=== PATIENT | female | born 1945 | race Caucasian/White ===

== ENCOUNTER → 2017-01-15 | Outpatient (CLI) | payer MEDICARE ==
--- NOTE | 2017-01-16 16:43 | XCELERA REPORT ---
[address] [address] Lower Extremity Arterial Evaluation Name: SHAUN DE LA CRUZ Age: 71 yrs Gender: Female : 1945 Patient Status: Outpatient Patient Location: Study Date: 01/15/2017 01:11 PM Procedure: A color flow and duplex scan of the lower extremity arteries was performed bilaterally with velocity and waveform anaylsis. Ankle brachial indicies performed. Reason For Study: ULCER Ordering Physician: SHARRON LUX Performed By: Cam Leigh Measurements and Calculations Right Left CASH APPLICATION REPRESENTATIVE PSV 101.5 94.3 cm/sec Prox PFA PSV -160.6 -96.2 cm/sec Dist SFA PSV -70.2 -64.0 cm/sec Dist Pop A PSV 60.2 68.4 cm/sec Dist SIA PSV 23.0 -35.4 cm/sec Dist AIR DRIER PSV 40.0 38.5 cm/sec Juan Francisco Pedis PSV 27.1 26.3 cm/sec Right Side Arterial Evaluation Normal velocity and biphasic waveforms noted from the Common Femoral artery to the Posterior Tibial artery . Monophasic with mild broadening in the Anterior Tibial artery 20-49 % stenosis noted . In the Ileo Femoral inflow. With sequential disease. Ankle Brachial index not done due to inability to withstand compression. Left Side Arterial Evaluation Normal velocity and biphasic waveforms noted in the Common Femoral artery. Monophasic with broadening to the infrageniculate vessels. 20-49 % stenosis noted . In the Ileo Femoral inflow. With sequential disease. Ankle Brachial index not done due to inability to withstand compression. Interpretation Summary Moderate hemodynamically significant lesions in the right lower extremity only, on duplex imaging, at rest. Severe hemodynamically significant lesions in the left lower extremity only, on duplex imaging, at rest. : SHARRON LUX > Ascencion Sheehan
== END ==
LOC: SP 12:49
PROVIDERS: ATTEND Nurse Practitioner Family
DX: L97.222 Non-pressure chronic ulcer of left calf with fat layer exposed (principal)
CPT/HCPCS: 93925

== ENCOUNTER 2017-02-03 17:04 | Inpatient (IN) | payer MEDICARE ==
[2017-02-03] MEDS ORDERED: INFLUENZA ADLT QUAD (36MOS+) 2017-18 VAC 0.5 ML SYR IM PRN (18:21)
[2017-02-03] MEDS ORDERED: OXYCODONE HCL SR 10 MG TABLET PO ONE (19:00)
[2017-02-03 19:54] LABS: ABSOLUTE BASOPHILS # (AUTO) 0.1 10^3/uL (0.0-0.2); ABSOLUTE MONOCYTES (AUTO) 0.6 10^3/uL (0.1-1.4); ABSOLUTE NEUT (AUTO) 11.8 10^3/uL (1.7-8.2); BASOPHILS % (AUTO) 0.7 % (0-2); EOSINOPHILS % (AUTO) 0.1 % (0-6); HEMATOCRIT 31.7 % (36.0-47.0); HEMOGLOBIN 10.6 g/dL (12.0-15.5); LYMPHOCYTES % (AUTO) 7.1 % (13-45); MEAN CORPUSCULAR HEMOGLOBIN 32.6 pg (27.0-33.4); MEAN CORPUSCULAR HGB CONC 33.4 g/dL (32.0-36.0); MEAN CORPUSCULAR VOLUME 98 fl (80-97); MONOCYTES % (AUTO) 4.6 % (3-13); PLATELET COUNT 275 10^3/uL (150-450); RED BLOOD COUNT 3.24 10^6/uL (3.72-5.28); RED CELL DISTRIBUTION WIDTH 15.7 % (11.5-14.0); SEGMENTED NEUTROPHILS % (AUTO) 87.5 % (42-78); TOTAL CELLS COUNTED % (AUTO) 100 %; WHITE BLOOD COUNT 13.5 10^3/uL (4.0-10.5)
[2017-02-03] MEDS ORDERED: ALBUTEROL SULFATE HFA (90 MCG/PUFF) 8 GM MDI (1 MDI/ER DISP) IH PRN (19:55)
[2017-02-03] MEDS ORDERED: ONDANSETRON HCL INJ/PF 4 MG/2 ML SDV IV PRN (19:57)
[2017-02-03] MEDS ORDERED: ALBUTEROL SULFATE HFA (90 MCG/PUFF) 200 PUFF/8.5 GM MDI IH PRN (20:00)
[2017-02-03 20:10] LABS: ANION GAP 9 (5-19); BLOOD UREA NITROGEN 21 mg/dL (7-20); CALCIUM 9.5 mg/dL (8.4-10.2); CARBON DIOXIDE 34 mmol/L (22-30); CHLORIDE 97 mmol/L (98-107); GLUCOSE 98 mg/dL (75-110); POTASSIUM 3.9 mmol/L (3.6-5.0); SODIUM 140.1 mmol/L (137-145)
[2017-02-03] MEDS: IPRATROPIUM/ALBUTEROL 0.5-2.5 MG/3 ML AMPUL NEB SCH ×2 (20:17→23:37)
[2017-02-03] MEDS ORDERED: LIDOCAINE 5% (700 MG) TRANSDERMAL ADH..PATCH TP ONE (21:00)
[2017-02-03] MEDS ORDERED: METOPROLOL TARTRATE 50 MG TABLET PO SCH (22:00)
[2017-02-03] MEDS: TIOTROPIUM BROMIDE DPI 5 CAP/KIT (18 MCG/CAP) IH SCH (22:18)
[2017-02-03] MEDS: GABAPENTIN 300 MG CAPSULE PO SCH (22:18)
[2017-02-03] MEDS: FLUTICASONE NASAL SPRAY 50 MCG/SPRY 120 SPRAY/16 GM NAREB SCH (22:18)
[2017-02-03] MEDS: ATORVASTATIN CALCIUM 10 MG TABLET PO SCH (22:18)
[2017-02-03] MEDS: METOPROLOL TARTRATE 25 MG TABLET PO SCH (22:18)
[2017-02-03] MEDS: BUDESONIDE/FORMOTEROL 160-4.5 MCG 60 PUFF/6 GM MDI IH SCH (22:18)
[2017-02-03] MEDS: OXYCODONE HCL IR 5 MG TABLET PO PRN (22:57)
[2017-02-03] MEDS ORDERED: PREDNISONE 20 MG TABLET PO ONE (22:59)
[2017-02-03] MEDS ORDERED: KETOROLAC TROMETHAMINE INJ/PF 30 MG/1 ML SDV IV ONE (23:05)
[2017-02-03] MEDS ORDERED: LEVOFLOXACIN 500 MG TABLET PO ONE (23:15)
[2017-02-03] MEDS ORDERED: SENNOSIDES/DOCUSATE 8.6-50 MG 1 EACH TABLET PO ONE (23:15)
--- NOTE | 2017-02-03 23:17 | PDOC H&P ---
History of Present Illness Admission Date/PCP: 02/03/17 19:57 History of Present Illness: SHAUN DE LA CRUZ is a 72 year old female with past medical history of chronic lower extremity edema, chronic lower extremity ulcers, COPD on chronic home oxygen and steroid therapy, congestive heart failure, chronic pain, and osteoporosis who presents for direct admission from her pain management clinic for thoracic spinal fractures. Patient reports this occurred approximately 3 days ago and went or not precipitated by any injury or trauma. She does report she is coughing perhaps slightly more than normal and has a cough productive of yellow sputum. She does report that this is quite normal for her and she is not having more sputum production than normal. She denies any shortness of breath, chest pain, fever, chills, nausea, vomiting. She does admit to constipation. She reports that the dose of oxycodone did improve her pain as has the Lidoderm patches. Patient admits to concerns of taking more pain medication than she needs to secondary to her respiratory status. She is referred to the hospital service for direct admission. Past Medical History Cardiac Medical History: Reports: Congestive Heart Failure, Hyperlipidema, Hypertension, Peripheral Vascular Disease Pulmonary Medical History: Reports: Chronic Obstructive Pulmonary Disease (COPD ) - home O2 3l, Respiratory Failure Endocrine Medical History: Reports: Obesity Musculoskeltal Medical History: Reports: Arthritis Psychiatric Medical History: Reports: Depression Past Surgical History Past Surgical History: Reports: Orthopedic Surgery Social History Smoking Status: Current Some Day Smoker Cigarettes Packs Per Day: 0.1 - 1-2 rarely Frequency of Alcohol Use: None Hx Recreational Drug Use: No Hx Prescription Drug Abuse: No - Advance Directive Resuscitation Status: Other - unsure Surrogate healthcare decision maker:: , LISANDRA De La Cruz Family History Family History: Arthritis, CAD, Malignancy Parental Family History Reviewed: Yes Children Family History Reviewed: Yes Sibling(s) Family History Reviewed.: Yes Medication/Allergy Home Medications: Albuterol Sulfate [Proair HFA] 2 puff IH Q4 PRN 02/03/17 Budesonide/Formoterol Fumarate [Symbicort 160-4.5 Mcg Inhaler] 2 puff IH Q12 09/14 Calcium Carbonate/Vitamin D3 [Calcium 500+D Tablet Chew] 1 tab.chew PO DAILY 09/14 Ergocalciferol (Vitamin D2) [Vitamin D2] 50,000 unit PO .QMONTHLY 02/03/17 Fluticasone Propionate [Flonase Nasal Maynard 50 Mcg/Maynard 16 gm] 1 spray NAREB Q12 02/03/17 Furosemide [Lasix 40 mg Tablet] 40 mg PO QAM 02/03/17 Ipratropium/Albuterol Sulfate [Duoneb 3 ml Ampul] 3 ml NEB RTQ4 02/03/17 Metoprolol Tartrate [Lopressor 50 mg Tablet] 25 mg PO Q12 02/03/17 Pravastatin Sodium [Pravachol] 20 mg PO QHS 02/03/17 Prednisone [Deltasone 10 mg Tablet] 10 mg PO DAILY 02/03/17 Tiotropium [place] [Spiriva Handihaler 5 Cap/Kit (18 Mcg/Cap)] 1 cap IH DAILY Vit C/Vit E/Lutein/Min/[place]-3 [Ocuvite Softgel] 1 cap PO DAILY 02/03/17 Allergies/Adverse Reactions: doxycycline Allergy (Verified 02/03/17 10:58) Penicillins Allergy (Verified 02/03/17 10:58) Review of Systems Constitutional: ABSENT: chills, fever(s), headache(s), weight gain, weight loss Eyes: ABSENT: visual disturbances Ears: ABSENT: hearing changes Cardiovascular: PRESENT: edema. ABSENT: chest pain, dyspnea on exertion, orthropnea, palpitations Respiratory: PRESENT: as per HPI, cough, sputum. ABSENT: dyspnea, hemoptysis Gastrointestinal: ABSENT: abdominal pain, constipation, diarrhea, hematemesis, hematochezia, nausea, vomiting Genitourinary: ABSENT: dysuria, hematuria Musculoskeletal: ABSENT: joint swelling Integumentary: PRESENT: wounds - RLE, decubitus. ABSENT: rash Neurological: ABSENT: abnormal gait, abnormal speech, confusion, dizziness, focal weakness, syncope Psychiatric: ABSENT: anxiety, depression, homidical ideation, suicidal ideation Endocrine: ABSENT: cold intolerance, heat intolerance, polydipsia, polyuria Hematologic/Lymphatic: ABSENT: easy bleeding, easy bruising Physical Exam Vital Signs: Temp Pulse Resp BP Pulse Ox 98.1 F 108 H 18 125/55 L 100 02/03/17 20:56 02/03/17 20:56 02/03/17 20:56 02/03/17 20:56 02/03/17 20:56 Intake & Output 02/02/17 02/03/17 02/04/17 06:59 06:59 06:59 Weight 71.214 kg General appearance: PRESENT: mild distress - pain, obese, well-developed, well- nourished Head exam: PRESENT: atraumatic, normocephalic Eye exam: PRESENT: conjunctiva pink, EOMI, PERRLA. ABSENT: conjunctival injection, scleral icterus Ear exam: PRESENT: normal external ear exam Mouth exam: PRESENT: dry mucosa, tongue midline Neck exam: ABSENT: JVD, lymphadenopathy, thyromegaly, tracheal deviation Respiratory exam: PRESENT: prolonged expiratory phas, symmetrical, unlabored, wheezes - rare scattered. ABSENT: accessory muscle use, crackles, rales, rhonchi, tachypnea Cardiovascular exam: PRESENT: RRR, +S1, +S2, systolic murmur. ABSENT: diastolic murmur, gallop, rubs Pulses: PRESENT: normal dorsalis pedis pul Vascular exam: PRESENT: normal capillary refill GI/Abdominal exam: PRESENT: diminished bowel sounds, soft. ABSENT: distended, firm, guarding, mass, Long's sign, organolmegaly, rebound, rigid, tenderness Rectal exam: PRESENT: deferred Extremities exam: PRESENT: full ROM, +2 edema. ABSENT: calf tenderness, clubbing Neurological exam: PRESENT: alert, awake, oriented to person, oriented to place , oriented to time, oriented to situation, CN II-XII grossly intact. ABSENT: motor sensory deficit Psychiatric exam: PRESENT: appropriate affect, normal mood. ABSENT: homicidal ideation, suicidal ideation Skin exam: PRESENT: dry, warm. ABSENT: cyanosis, intact - 1 cm circular lesion on medial RLE, rash Results Laboratory Results: 02/03/17 19:42 02/03/17 19:42 02/03/17 02/03/17 19:42 19:42 WBC 13.5 H RBC 3.24 L Hgb 10.6 L Hct 31.7 L MCV 98 H MCH 32.6 MCHC 33.4 RDW 15.7 H Plt Count 275 Seg Neutrophils % 87.5 H Lymphocytes % 7.1 L Monocytes % 4.6 Eosinophils % 0.1 Basophils % 0.7 Absolute Neutrophils 11.8 H Absolute Lymphocytes 1.0 Absolute Monocytes 0.6 Absolute Eosinophils 0.0 Absolute Basophils 0.1 Sodium 140.1 Potassium 3.9 Chloride 97 L Carbon Dioxide 34 H Anion Gap 9 BUN 21 H Creatinine 0.76 Est GFR ( Amer) > 60 Est GFR (Non-Af Amer) > 60 Glucose 98 Calcium 9.5 Assessment & Plan - Diagnosis (1) Thoracic back pain Qualifiers: Chronicity: acute Back pain laterality: midline Qualified Code(s): M54.6 - Pain in thoracic spine Is this a current diagnosis for this admission?: Yes Plan: Patient has 3 fractured thoracic vertebrae. Consult her pain management physician for possible kyphoplasty Patient on oxycodone 10 mg p.o. every 6 as needed Toradol as needed and Lidoderm patches (2) COPD exacerbation Is this a current diagnosis for this admission?: Yes Plan: Patient has very minor COPD exacerbation. Place patient on increased amount of prednisone 20 mg p.o. twice daily, as needed albuterol, scheduled nebulized treatments, and Levaquin. Obtain sputum culture. (3) Chronic ulcer of lower extremity with fat layer exposed Qualifiers: Laterality: right Qualified Code(s): L97.912 - Non-pressure chronic ulcer of unspecified part of right lower leg with fat layer exposed Is this a current diagnosis for this admission?: Yes Plan: Cover with Allevyn and use Silvadene (4) Current chronic use of systemic steroids Is this a current diagnosis for this admission?: Yes Plan: Continue prednisone (5) Chronic hypoxemic respiratory failure Is this a current diagnosis for this admission?: Yes Plan: Patient uses 3 L of home O2 (6) HTN (hypertension) Qualifiers: Hypertension type: essential hypertension Qualified Code(s): I10 - Essential (primary) hypertension Is this a current diagnosis for this admission?: Yes Plan: Metoprolol (7) HLD (hyperlipidemia) Qualifiers: Hyperlipidemia type: unspecified Qualified Code(s): E78.5 - Hyperlipidemia , unspecified Is this a current diagnosis for this admission?: Yes Plan: Continue statin (8) Chronic diastolic CHF (congestive heart failure) Is this a current diagnosis for this admission?: Yes Plan: Patient is currently compensated. Patient is not on an LUTHER or an ARB. At this time we will hold on this therapy. Continue her metoprolol and Lasix (9) PVD (peripheral vascular disease) Is this a current diagnosis for this admission?: Yes (10) Chronic pain Qualifiers: Chronic pain type: other chronic pain Qualified Code(s): G89.29 - Other chronic pain Is this a current diagnosis for this admission?: Yes - Time Time Spent: 30 to 50 Minutes Medications reviewed and adjusted accordingly: Yes Anticipated discharge: Home with Homehealth Within: within 24 hours - Inpatient Certification Based on my medical assessment, after consideration of the patient's comorbidities, presenting symptoms, or acuity I expect that the services needed warrant INPATIENT care.: No I certify that my determination is in accordance with my understanding of Medicare's requirements for reasonable and necessary INPATIENT services [42 CFR 412.3e].: No Post Hospital Care: 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
[2017-02-04] MEDS: IPRATROPIUM/ALBUTEROL 0.5-2.5 MG/3 ML AMPUL NEB SCH ×5 (03:44→20:11)
[2017-02-04] MEDS: FUROSEMIDE 40 MG TABLET PO SCH (07:54)
--- NOTE | 2017-02-04 08:29 | RADIOLOGY REPORT (SQ) ---
EXAM DESCRIPTION: CHEST PA/LAT COMPLETED DATE/TIME: 02/04/2017 7:43 am REASON FOR STUDY: copd exacerbation COMPARISON: None. EXAM PARAMETERS: NUMBER OF VIEWS: two views TECHNIQUE: Digital Frontal and Lateral radiographic views of the chest acquired. RADIATION DOSE: NA LIMITATIONS: none FINDINGS: LUNGS AND PLEURA: Bibasilar bandlike atelectasis. There is trace pleural fluid in the right hemithorax. No pneumothorax MEDIASTINUM AND HILAR STRUCTURES: No masses or contour abnormalities. HEART AND VASCULAR STRUCTURES: Mild cardiomegaly, uncoiled thoracic aorta BONES: Osteoporotic with multiple high-grade chronic appearing compression deformities in the lower t horacic spine causing kyphosis HARDWARE: None in the chest. OTHER: No other significant finding. IMPRESSION: Bibasilar bandlike atelectasis Trace right pleural fluid. TECHNICAL DOCUMENTATION: JOB ID: [id number] [employer]- All Rights Reserved
[2017-02-04] MEDS ORDERED: LORAZEPAM INJ 2 MG/1 ML VIAL IV ONE ×2 (09:30→10:00)
[2017-02-04] MEDS ORDERED: VIT E PO SCH (10:00)
[2017-02-04] MEDS ORDERED: [UNRECOGNIZED DRUG - OTHER] PO SCH (10:00)
[2017-02-04] MEDS ORDERED: TIOTROPIUM BROMIDE DPI 5 CAP/KIT (18 MCG/CAP) IH SCH (10:00)
[2017-02-04] MEDS ORDERED: OMEGA PO SCH (10:00)
[2017-02-04] MEDS ORDERED: VIT C PO SCH (10:00)
[2017-02-04] MEDS ORDERED: LIDOCAINE 5% (700 MG) TRANSDERMAL ADH..PATCH TP SCH (10:00)
[2017-02-04] MEDS ORDERED: PREDNISONE 10 MG TABLET PO SCH (10:00)
[2017-02-04] MEDS ORDERED: VITAMIN D3 PO SCH (10:00)
[2017-02-04] MEDS ORDERED: CALCIUM CARBONATE PO SCH (10:00)
[2017-02-04] MEDS ORDERED: SILVER SULFADIAZINE 1% CREAM 25 GM TP SCH (10:00)
[2017-02-04] MEDS ORDERED: LUTEIN PO SCH (10:00)
[2017-02-04] MEDS ORDERED: LORAZEPAM INJ 2 MG/1 ML VIAL IV PRN (11:17)
[2017-02-04 12:19] LABS: INTERNATIONAL RATION (INR) 0.99; PROTHROMBIN TIME 13.8 SEC (11.4-15.4)
--- NOTE | 2017-02-04 12:59 | RADIOLOGY REPORT (SQ) ---
EXAM DESCRIPTION: CT CHEST WITH COMPLETED DATE/TIME: 02/04/2017 10:46 am REASON FOR STUDY: evalaute for pulmonary fibrosis I27.29 OTHER SECONDARY PULMONARY HYPERTENSION J84 .10 PULMONARY FIBROSIS, UNSPECIFIED COMPARISON: Two-view chest 02/04/2017 TECHNIQUE: CT scan of the chest performed using helical scanning technique with dynamic intravenous contrast injection. Images reviewed with lung, soft tissue and bone windows. Reconstructed coronal and sagittal MPR images reviewed. All images stored on PACS. All CT scanners at this facility use dose modulation, iterative reconstruction, and/or weight based d osing when appropriate to reduce radiation dose to as low as reasonably achievable (ALARA). [facility]: Dose Right [facility]: CareDose [facility]: Dose Right [facility]: Teradose 4D [facility]: Hidden Radio CONTRAST TYPE AND DOSE: contrast/concentration: Isovue 370.00 mg/ml; Total Contrast Delivered: 80.0 ml; Total Saline Delivered: 55.0 ml RENAL FUNCTION: Creatinine 0.76 RADIATION DOSE: Up-to-date CT equipment and radiation dose reduction techniques were employed. CTDIv ol: 11.8 mGy. DLP: 384 mGy-cm. . LIMITATIONS: None. FINDINGS: LUNGS AND PLEURA: Mild bibasilar bandlike atelectasis. No fluffy alveolar infiltrates worrisome for edema or pneumonia. No pleural effusion. No pneumothor ax. Airways are patent. HILAR AND MEDIASTINAL STRUCTURES: No identified masses or abnormal nodes. HEART AND VASCULAR STRUCTURES: No aneurysm or dissection. No central pulmonary emboli. No pericardi al effusion. Mild cardiomegaly. Moderate coronary artery calcification, moderate aortic valve and m itral annulus calcification. HARDWARE: None in the chest. UPPER ABDOMEN: No significant findings. Limited exam. THYROID AND OTHER SOFT TISSUES: No masses. No adenopathy. BONES: Osteoporotic. Chronic appearing vertebra plana deformities at T8, T9, and T10 cause focal tho racic kyphosis. No acute compression deformity. OTHER: No other significant finding. IMPRESSION: No CT evidence of interstitial lung disease Kyphosis from T8, T9, and T10 vertebra plana deformities Bibasilar atelectasis TECHNICAL DOCUMENTATION: JOB ID: [id number] Quality ID # [id number]: Final reports with documentation of one or more dose reduction techniques (e.g., Au tomated exposure control, adjustment of the mA and/or kV according to patient size, use of iterative reconstruction technique) 2010 [employer] Radiology [employer]- All Rights Reserved
--- NOTE | 2017-02-04 13:07 | EKG REPORT ---
SEVERITY:- ABNORMAL ECG - SINUS TACHYCARDIA LEFT AXIS DEVIATION PROBABLE LEFT VENTRICULAR HYPERTROPHY CONSIDER ANTERIOR INFARCT : Confirmed by: Tae Moya MD 04-Feb-2017 13:06:51
[2017-02-04] MEDS: LEVOFLOXACIN 500 MG TABLET PO SCH (13:16)
[2017-02-04] MEDS: PREDNISONE 10 MG TABLET PO SCH ×2 (13:17→17:32)
[2017-02-04] MEDS: FLUTICASONE NASAL SPRAY 50 MCG/SPRY 120 SPRAY/16 GM NAREB SCH ×2 (13:19→21:45)
[2017-02-04] MEDS: BUDESONIDE/FORMOTEROL 160-4.5 MCG 60 PUFF/6 GM MDI IH SCH ×2 (13:22→21:45)
[2017-02-04] MEDS: METOPROLOL TARTRATE 25 MG TABLET PO SCH ×2 (13:22→21:45)
[2017-02-04] MEDS: DOCUSATE SODIUM 100 MG CAPSULE PO SCH ×2 (13:23→17:32)
[2017-02-04] MEDS: CALCIUM CARBONATE 250 MG/VITAMIN D3 125 UNIT TABLET PO SCH (13:23)
[2017-02-04] MEDS: OXYCODONE HCL IR 5 MG TABLET PO PRN ×2 (14:00→20:05)
[2017-02-04 15:51] LABS: APPEARANCE,URINE CLEAR; BILIRUBIN,URINE NEGATIVE (NEGATIVE); COLOR,URINE YELLOW; GLUCOSE, URINE NEGATIVE (NEGATIVE); KETONES,URINE NEGATIVE (NEGATIVE); LEUKOCYTE ESTERASE,URINE NEGATIVE (NEGATIVE); NITRITE,URINE NEGATIVE (NEGATIVE); PROTEIN,URINE NEGATIVE (NEGATIVE); URINE SPECIFIC GRAVITY 1.039; UROBILINOGEN,URINE NEGATIVE mg/dL (<2.0)
[2017-02-04] MEDS: COLLAGENASE CLOSTRIDIUM HIST. OINT 30 GM TP SCH (16:01)
--- NOTE | 2017-02-04 16:31 | RADIOLOGY REPORT (SQ) ---
EXAM DESCRIPTION: MRI THORACIC SPINE WITHOUT COMPLETED DATE/TIME: 02/04/2017 2:32 pm REASON FOR STUDY: COMPRESSION FX I27.29 OTHER SECONDARY PULMONARY HYPERTENSION J84.10 PULMONARY FI BROSIS, UNSPECIFIED S32.000A WEDGE COMPRESSION FRACTURE OF UNSP LUMBAR VERTEBRA, COMPARISON: CT chest 02/04/2017 TECHNIQUE: Sagittal and Axial imaging includes T1, T2, STIR and gradient echo sequences. LIMITATIONS: Patient was in pain, rapid pulse sequences were performed FINDINGS: LOCALIZER: No worrisome findings. ALIGNMENT: Advanced thoracic kyphosis related to high-grade compression deformities at T8-T9 and T10 VERTEBRAE: Greater than 50% compression deformity is of T8, T9, and T10 are present. These appear carter bacute to chronic, with vertebral body sclerosis and vacuum phenomenon or air present along the upper endplate of T8 and T9 on yesterday's CT. On today's MRI, there is a cavity filled with air and flui d paralleling the upper endplate of T8 and T9. At the T8 level, the inferior vertebral body exhibits mild marrow edema. BONE MARROW: Normal. No mar row replacement or reactive changes. HARDWARE: None in the spine. CORD: Normal in size and signal intensity. SOFT TISSUES: No soft tissue masses. THORACIC DISCS T1-T12: No significant spinal stenosis or exit foraminal stenosis. LOWER CERVICAL: Incompletely imaged. No significant spinal stenosis or exit foraminal stenosis. UPPER LUMBAR: Incompletely imaged. No significant spinal stenosis or exit foraminal stenosis. OTHER: No other significant finding. IMPRESSION: Greater than 50% compression deformities at T8, T9, and T10 subacute to chronic in appea amando. There is minimal marrow edema at the T8 level. TECHNICAL DOCUMENTATION: JOB ID: [id number] 8000[employer]- All Rights Reserved
--- NOTE | 2017-02-04 16:35 | RADIOLOGY REPORT (SQ) ---
EXAM DESCRIPTION: MRI LUMBAR SPINE WITHOUT COMPLETED DATE/TIME: 02/04/2017 2:32 pm REASON FOR STUDY: COMPRESSION FX I27.29 OTHER SECONDARY PULMONARY HYPERTENSION J84.10 PULMONARY FI BROSIS, UNSPECIFIED S32.000A WEDGE COMPRESSION FRACTURE OF UNSP LUMBAR VERTEBRA, COMPARISON: None. TECHNIQUE: Limited protocol, patient was in pain. She underwent sagittal T1 and STIR images, axial T2 images through the lumbar spine. LIMITATIONS: None. FINDINGS: SEGMENTATION: No transitional anatomy. The lowest well-developed disc space is labeled L5- S1. ALIGNMENT: Anatomic. VERTEBRAE: Chronic appearing mild central upper endplate depression at L2 with less than 25% loss of height. No marrow edema. BONE MARROW: Normal. No marrow replacement or reactive changes. DISC SIGNAL: Diffuse decreased T2 weighted intervertebral disc signal. POSTERIOR ELEMENTS: Generally intact. No pars defect evident. HARDWARE: None in the spine. CORD AND CONUS: Normal in size and signal intensity. Conus at the L1-2 level. SOFT TISSUES: No aortic aneurysm seen. No bulky retroperitoneal adenopathy or mass. No paraspinal mas s or fluid. L1-L2: Mild diffuse posterior disc bulge and moderate bilateral facet and ligament hypertrophy cause mild central canal narrowing. Mild bilateral inferior foraminal narrowing without exiting L1 nerve r oot impingement. L2-L3: Mild diffuse posterior disc bulging and moderate bilateral facet and ligament hypertrophy caus e mild central canal narrowing. Mild bilateral inferior foraminal narrowing without exiting L2 nerve root impingement. L3-L4: Mild diffuse posterior disc bulging and moderate bilateral facet and ligament hypertrophy are present causing borderline central canal narrowing. Mild bilateral inferior foraminal narrowing with out exiting L3 nerve root impingement. L4-L5: Broad diffuse posterior disc bulge and bony spurring with moderate bilateral facet and ligamen t hypertrophy. Mild central canal narrowing. Mild bilateral inferior foraminal narrowing without ex iting L4 nerve root impingement. L5-S1: Minimal posterior disc bulging, moderate bilateral facet and ligament hypertrophy. No central canal narrowing. Moderate bilateral foraminal narrowing without definite exiting L5 nerve root impi ngement OTHER: No other significant findings. IMPRESSION: No lumbar acute or subacute wedge compression deformity. TECHNICAL DOCUMENTATION: JOB ID: [id number]- All Rights Reserved
--- NOTE | 2017-02-04 19:01 | PDOC PROGRESS REPORT ---
Subjective Progress Note for:: 02/04/17 Subjective:: Patient complains of pain in her back. Had been having fracture bones for a while. Admits having sore in he buttocks and stays sitting for the most part the whole day. Uses oxygen on a regular basis and had not required to go up ROS All organ system evaluated and negative except as in objective Physical Exam Vital Signs: Temp Pulse Resp BP Pulse Ox 98.2 F 99 18 116/52 L 91 L 02/04/17 03:19 02/04/17 08:27 02/04/17 08:27 02/04/17 03:19 02/04/17 08:27 Intake & Output 02/03/17 02/04/17 02/05/17 06:59 06:59 06:59 Intake Total 150 Balance 150 Weight 72.1 kg General appearance: PRESENT: no acute distress, cooperative, obese, other - chronically ill looking Head exam: PRESENT: atraumatic, normocephalic Eye exam: PRESENT: EOMI, PERRLA Ear exam: PRESENT: normal external ear exam Mouth exam: PRESENT: moist, neck supple Neck exam: PRESENT: full ROM. ABSENT: JVD, tenderness Respiratory exam: PRESENT: crackles, symmetrical. ABSENT: tachypnea, unlabored Cardiovascular exam: PRESENT: RRR. ABSENT: diastolic murmur, systolic murmur Vascular exam: PRESENT: normal capillary refill GI/Abdominal exam: PRESENT: normal bowel sounds, soft. ABSENT: tenderness Extremities exam: PRESENT: +1 edema Neurological exam: PRESENT: alert, oriented to person, oriented to place, oriented to time Psychiatric exam: PRESENT: appropriate affect Skin exam: PRESENT: other - ecchymoses noted to uppper and lower extremeties Ulcer to medial aspect of LLE (0.5 x 0.5 cm) with fibrin deposition Results Laboratory Results: 02/03/17 19:42 02/03/17 19:42 02/03/17 02/03/17 02/04/17 19:42 19:42 04:14 WBC 13.5 H RBC 3.24 L Hgb 10.6 L Hct 31.7 L MCV 98 H MCH 32.6 MCHC 33.4 RDW 15.7 H Plt Count 275 Seg Neutrophils % 87.5 H Lymphocytes % 7.1 L Monocytes % 4.6 Eosinophils % 0.1 Basophils % 0.7 Absolute Neutrophils 11.8 H Absolute Lymphocytes 1.0 Absolute Monocytes 0.6 Absolute Eosinophils 0.0 Absolute Basophils 0.1 Sodium 140.1 Potassium 3.9 Chloride 97 L Carbon Dioxide 34 H Anion Gap 9 BUN 21 H Creatinine 0.76 Est GFR ( Amer) > 60 Est GFR (Non-Af Amer) > 60 Glucose 98 Calcium 9.5 Magnesium 2.2 Impressions: Chest X-Ray 02/03/17 00:00 IMPRESSION: Bibasilar bandlike atelectasis Trace right pleural fluid. Assessment & Plan - Diagnosis (1) COPD exacerbation Is this a current diagnosis for this admission?: Yes Plan: She appears to be doing well. Exacerbation resolved. Order CT of chest to evaluate for pulmonary fibrosis (2) Chronic hypoxemic respiratory failure Is this a current diagnosis for this admission?: Yes Plan: Continue oxygen supplementation (3) Chronic pain Qualifiers: Chronic pain type: other chronic pain Qualified Code(s): G89.29 - Other chronic pain Is this a current diagnosis for this admission?: Yes Plan: Having an acute episode due to rib fractures. currently being managed by Dr Kennedy (4) Chronic ulcer of lower extremity with fat layer exposed Qualifiers: Laterality: right Qualified Code(s): L97.912 - Non-pressure chronic ulcer of unspecified part of right lower leg with fat layer exposed Is this a current diagnosis for this admission?: Yes Plan: Order santyl daily (5) Current chronic use of systemic steroids Is this a current diagnosis for this admission?: Yes Plan: Decrease current dose of steroids. (6) HTN (hypertension) Qualifiers: Hypertension type: essential hypertension Qualified Code(s): I10 - Essential (primary) hypertension Is this a current diagnosis for this admission?: Yes Plan: Continue outpatient regimen - Time Time Spent with patient: 15-24 minutes Medications reviewed and adjusted accordingly: Yes Anticipated discharge: Home - Inpatient Certification Based on my medical assessment, after consideration of the patient's comorbidities, presenting symptoms, or acuity I expect that the services needed warrant INPATIENT care.: Yes I certify that my determination is in accordance with my understanding of Medicare's requirements for reasonable and necessary INPATIENT services [42 CFR 412.3e].: Yes Medical Necessity: Need for Pain Control, Need for Surgery
[2017-02-04] MEDS: SENNOSIDES/DOCUSATE 8.6-50 MG 1 EACH TABLET PO SCH (21:45)
[2017-02-04] MEDS: GABAPENTIN 300 MG CAPSULE PO SCH (21:45)
[2017-02-04] MEDS: ATORVASTATIN CALCIUM 10 MG TABLET PO SCH (21:45)
[2017-02-04] MEDS: TIOTROPIUM BROMIDE DPI 5 CAP/KIT (18 MCG/CAP) IH SCH (21:45)
[2017-02-05] MEDS: IPRATROPIUM/ALBUTEROL 0.5-2.5 MG/3 ML AMPUL NEB SCH ×7 (00:15→23:47)
[2017-02-05] MEDS: OXYCODONE HCL IR 5 MG TABLET PO PRN ×3 (02:45→14:32)
[2017-02-05] MEDS: FUROSEMIDE 40 MG TABLET PO SCH (08:27)
--- NOTE | 2017-02-05 09:35 | XCELERA REPORT ---
[address] [address] Transthoracic Echocardiogram Report Name: SHAUN DE LA CRUZ Age: 72 yrs Gender: Female : 1945 Patient Status: Inpatient Patient Location: [address] [place] [address] Study Date: 02/04/2017 03:39 PM Height: 60 in Weight: 158 lb BSA: 1.7 m2 Procedure: A complete two-dimensional transthoracic echocardiogram was performed (2D, M-mode, spectral and color flow Doppler). The study was technically difficult with many images being suboptimal in quality. Reason For Study: evaluate for pulmonary hypertension Ordering Physician: CJ KNIGHT Performed By: Dulce Patrick Interpretation Summary The left ventricular ejection fraction is normal. Doppler measurements suggest impaired left ventricular relaxation, which is associated with grade I/IV or mild diastolic dysfunction There is mild concentric left ventricular hypertrophy. The left ventricle is grossly normal size. Wall motion cannot be accurately commented on, but no definite regional wall motion abnormalities noted. The right ventricular systolic function is normal. The left atrial size is normal. The right atrium is normal in size There is a trace amount of mitral regurgitation There is no mitral valve stenosis. There is a trace amount of aortic regurgitation There is no aortic valve stenosis There is a trace to mild amount of tricuspid regurgitation There is mild to moderate pulmonary hypertension by echo Right ventricular systolic pressure is estimated to be elevated at 40- 50mmHg. The aortic root is not well visualized. The inferior vena cava was not well visualized There is no pericardial effusion. MMode/2D Measurements & Calculations RVDd: 2.6 cm LVIDd: 4.7 cmFS: 30.5 % Ao root diam: 3.3 cm IVSd: 0.99 cm LVIDs: 3.2 cmEDV(Teich): 100.8 ml LVPWd: 1.1 cmESV(Teich): 42.4 ml Ao root area: 8.4 cm2 EF(Teich): 58.0 % LVOT diam: 2.0 cm LVOT area: 3.0 cm2 Doppler Measurements & Calculations MV E max eneida: MV dec slope: Ao V2 max: LV V1 max P.5 cm/sec 638.9 cm/sec2 175.8 cm/sec 8.2 mmHg MV A max eneida: MV dec time: Ao max PG: LV V1 max: 132.0 cm/sec 0.14 sec 12.4 mmHg 143.1 cm/sec MV E/A: 0.68 ANAHI(V,D): 2.5 cm2 PA V2 max: TR max eneida: 82.1 cm/sec 292.6 cm/sec PA max P.7 mmHgTR max P.2 mmHg Left Ventricle The left ventricle is grossly normal size. There is mild concentric left ventricular hypertrophy. The left ventricular ejection fraction is normal. Doppler measurements suggest impaired left ventricular relaxation, which is associated with grade I/IV or mild diastolic dysfunction. Wall motion cannot be accurately commented on, but no definite regional wall motion abnormalities noted. Right Ventricle The right ventricle is grossly normal size. There is normal right ventricular wall thickness. The right ventricular systolic function is normal. Atria The right atrium is normal in size. The left atrial size is normal. Interarterial septum not well visualized and not well dopplered. Cannot comment on ASD/PFO presence. Mitral Valve There is mild mitral leaflet calcification. There is no mitral valve stenosis. There is a trace amount of mitral regurgitation. Aortic Valve The aortic valve is not well visualized secondary to technical limitations. The aortic valve opens well. There is no aortic valve stenosis. There is a trace amount of aortic regurgitation. Tricuspid Valve The tricuspid valve is not well visualized secondary to technical limitations. There is no tricuspid stenosis. There is a trace to mild amount of tricuspid regurgitation. There is mild to moderate pulmonary hypertension by echo. Right ventricular systolic pressure is estimated to be elevated at 40-50mmHg. Pulmonic Valve The pulmonic valve is not well visualized. Great Vessels The aortic root is not well visualized. The inferior vena cava was not well visualized. Effusions There is no pericardial effusion. : CJ KNIGHT > Nazia Griffith
[2017-02-05] MEDS: LACTULOSE SYRUP 20 GM/30 ML UDCUP PO SCH ×2 (09:48→22:37)
[2017-02-05] MEDS: CALCIUM CARBONATE 250 MG/VITAMIN D3 125 UNIT TABLET PO SCH (09:48)
[2017-02-05] MEDS: LEVOFLOXACIN 500 MG TABLET PO SCH (09:48)
[2017-02-05] MEDS: METOPROLOL TARTRATE 25 MG TABLET PO SCH ×2 (09:48→22:37)
[2017-02-05] MEDS: DOCUSATE SODIUM 100 MG CAPSULE PO SCH ×2 (09:48→17:43)
[2017-02-05] MEDS: FLUTICASONE NASAL SPRAY 50 MCG/SPRY 120 SPRAY/16 GM NAREB SCH ×2 (09:49→22:37)
[2017-02-05] MEDS: COLLAGENASE CLOSTRIDIUM HIST. OINT 30 GM TP SCH (09:49)
[2017-02-05] MEDS: BUDESONIDE/FORMOTEROL 160-4.5 MCG 60 PUFF/6 GM MDI IH SCH ×2 (09:49→22:37)
[2017-02-05] MEDS: PREDNISONE 10 MG TABLET PO SCH ×2 (09:49→17:42)
[2017-02-05 13:34] LABS: HEMATOCRIT 31.3 % (36.0-47.0); HEMOGLOBIN 10.5 g/dL (12.0-15.5); MEAN CORPUSCULAR HEMOGLOBIN 32.6 pg (27.0-33.4); MEAN CORPUSCULAR HGB CONC 33.4 g/dL (32.0-36.0); MEAN CORPUSCULAR VOLUME 98 fl (80-97); PLATELET COUNT 303 10^3/uL (150-450); RED BLOOD COUNT 3.21 10^6/uL (3.72-5.28); RED CELL DISTRIBUTION WIDTH 16.1 % (11.5-14.0); WHITE BLOOD COUNT 12.7 10^3/uL (4.0-10.5)
[2017-02-05 14:09] LABS: ABSOLUTE LYMPHOCYTES# (MANUAL) 0.3 10^3/uL (0.5-4.7); ABSOLUTE MONOCYTES # (MANUAL) 0.3 10^3/uL (0.1-1.4); ABSOLUTE NEUTROPHILS# (MANUAL) 12.2 10^3/uL (1.7-8.2); BASOPHILS % (MANUAL) 0 % (0-2); EOSINOPHILS % (MANUAL) 0 % (0-6); LYMPHOCYTES % (MANUAL) 2 % (13-45); MONOCYTES % (MANUAL) 2 % (3-13); SEGMENTED NEUTROPHILS % (MAN) 96 % (42-78); TOTAL CELLS COUNTED 100
[2017-02-05 14:10] LABS: ANISOCYTOSIS 1+; HYPOCHROMASIA SLIGHT; PLATELET COMMENT ADEQUATE; POLYCHROMASIA SLIGHT; TOXIC GRANULATION 1+
--- NOTE | 2017-02-05 16:05 | PDOC PROGRESS REPORT ---
Subjective Progress Note for:: 02/05/17 Subjective:: Patient relates that she has been trying to move from the chair to the bed. States that her breathing is no worse than usual. Nurse to bedside and clarified order for Lidoderm patch. ROS All organ systems evaluated and negative except as in subjective All significant laboratories and diagnostics have been reviewed Physical Exam Vital Signs: Temp Pulse Resp BP Pulse Ox 97.8 F 104 H 18 123/52 L 97 02/05/17 11:20 02/05/17 14:00 02/05/17 12:33 02/05/17 11:20 02/05/17 11:20 Intake & Output 02/04/17 02/05/17 02/06/17 06:59 06:59 06:59 Intake Total 150 840 Output Total 450 Balance 150 390 Weight 72.1 kg 69.2 kg 69.2 kg General appearance: PRESENT: cooperative, mild distress, obese Head exam: PRESENT: atraumatic, normocephalic Eye exam: PRESENT: EOMI, PERRLA Ear exam: PRESENT: normal external ear exam Mouth exam: PRESENT: moist, neck supple Neck exam: PRESENT: full ROM. ABSENT: JVD, lymphadenopathy, tenderness, thyromegaly Respiratory exam: PRESENT: crackles - Bibasilar Cardiovascular exam: PRESENT: RRR. ABSENT: diastolic murmur, gallop, systolic murmur Vascular exam: PRESENT: normal capillary refill GI/Abdominal exam: PRESENT: normal bowel sounds, soft. ABSENT: guarding, tenderness Extremities exam: PRESENT: full ROM, joint swelling, pedal edema Musculoskeletal exam: PRESENT: other - Mostly chair bound Neurological exam: PRESENT: alert, oriented to person, oriented to place, oriented to time Psychiatric exam: PRESENT: appropriate affect, normal mood Skin exam: PRESENT: other - Left lower extremity leg ulcer. Multiple ecchymotic areas in upper and lower extremities Results Laboratory Results: 02/05/17 13:05 02/03/17 19:42 02/05/17 13:05 WBC 12.7 H RBC 3.21 L Hgb 10.5 L Hct 31.3 L MCV 98 H MCH 32.6 MCHC 33.4 RDW 16.1 H Plt Count 303 Seg Neutrophils % Not Reportable Lymphocytes % Not Reportable Monocytes % Not Reportable Eosinophils % Not Reportable Basophils % Not Reportable Absolute Neutrophils Not Reportable Absolute Lymphocytes Not Reportable Absolute Monocytes Not Reportable Absolute Eosinophils Not Reportable Absolute Basophils Not Reportable Impressions: Chest X-Ray 02/03/17 00:00 IMPRESSION: Bibasilar bandlike atelectasis Trace right pleural fluid. Chest CT 02/04/17 00:00 IMPRESSION: No CT evidence of interstitial lung disease Kyphosis from T8, T9, and T10 vertebra plana deformities Bibasilar atelectasis Lumbar Spine MRI 02/04/17 00:00 IMPRESSION: No lumbar acute or subacute wedge compression deformity. Thoracic Spine MRI 02/04/17 00:00 IMPRESSION: Greater than 50% compression deformities at T8, T9, and T10 subacute to chronic in appearance. There is minimal marrow edema at the T8 level. Assessment & Plan - Diagnosis (1) COPD exacerbation Is this a current diagnosis for this admission?: Yes Plan: She appears to be doing well. Exacerbation resolved. No signs of pulmonary fibrosis. Continue present management. (2) Chronic hypoxemic respiratory failure Is this a current diagnosis for this admission?: Yes Plan: Continue oxygen supplementation (3) Chronic pain Qualifiers: Chronic pain type: other chronic pain Qualified Code(s): G89.29 - Other chronic pain Is this a current diagnosis for this admission?: Yes Plan: Having an acute episode due to thoracic fractures. Currently being managed by Dr Kennedy. Patient waiting to be evaluated by anesthesia for possible vertebroplasty by Dr. Kennedy. (4) Chronic ulcer of lower extremity with fat layer exposed Qualifiers: Laterality: right Qualified Code(s): L97.912 - Non-pressure chronic ulcer of unspecified part of right lower leg with fat layer exposed Is this a current diagnosis for this admission?: Yes Plan: Continue Santyl daily (5) Current chronic use of systemic steroids Is this a current diagnosis for this admission?: Yes Plan: Continue current dose of steroids. (6) HTN (hypertension) Qualifiers: Hypertension type: essential hypertension Qualified Code(s): I10 - Essential (primary) hypertension Is this a current diagnosis for this admission?: Yes Plan: Continue outpatient regimen - Time Time Spent with patient: 15-24 minutes Medications reviewed and adjusted accordingly: Yes Anticipated discharge: Home with Homehealth Within: within 48 hours - Inpatient Certification Based on my medical assessment, after consideration of the patient's comorbidities, presenting symptoms, or acuity I expect that the services needed warrant INPATIENT care.: Yes I certify that my determination is in accordance with my understanding of Medicare's requirements for reasonable and necessary INPATIENT services [42 CFR 412.3e].: Yes Medical Necessity: Significant Comorbidiites Make Outpatient Treatment Too Risky , Need for Nebulizer Therapy and Monitoring of Response
--- NOTE | 2017-02-05 19:22 | CONSULTATION REPORT E ---
Consultation Report NAME: SHAUN DE LA CRUZ : 1945 AGE: 72Y DATE: 02/04/2017 ROOM: 537 A TO: SAMANTHA BLACK M.D. FROM: RENETTA MESA M.D. Requesting Physician REASON FOR CONSULTATION: The patient with multiple thoracic compression fractures. Consultation for potential kyphoplasty. CHIEF COMPLAINT: Back pain. HISTORY OF PRESENT ILLNESS: The patient is a 72-year-old female who is quite pleasant with an extensive past medical history including chronic lower extremity edema and venous stasis, chronic lower extremity ulcers, sacral decubitus ulcer, COPD on chronic oxygen and steroid therapy, congestive heart failure, chronic pain syndrome, and osteoporosis. She was admitted secondary to multiple spinal fractures and worsening of medical comorbidities. The patient has had some issues with coughing and sputum expectoration and was admitted for further workup and treatment. The patient notes that she has had severe pain for the past number of weeks, mostly in the mid back which is keeping her from being able to get up and move very well. The patient notes that she cannot sleep in her own bed secondary to the pain in the mid back, that seemed to be precipitated quite suddenly. She does not have a particular inciting event but notes that this started a couple of months ago and she has been unable to get out of the recliner since. She notably did have a fall resulting in L2 compression fracture though this pain seems to have resolved at this point. PAST MEDICAL HISTORY: 1. Congestive heart failure. 2. Hyperlipidemia. 3. Hypertension. 4. Peripheral vascular disease. 5. Chronic obstructive pulmonary disease on home oxygen 3L. 6. History of respiratory failure. 7. Obesity. 8. History of arthritis. 9. Chronic back pain. 10. Lumbar disk degeneration. 11. Depression. 12. Sacral decubitus ulcers. PAST SURGICAL HISTORY: The patient has had a few orthopedic surgeries. SOCIAL HISTORY: Current smoker, a few cigarettes per day, but denies alcohol or recreational drug use. Lives with her . FAMILY HISTORY: Arthritis, coronary artery disease, and cancer. HOME MEDICATIONS: 1. Albuterol. 2. Budesonide. 3. Calcium carbonate and vitamin D. 4. Ergocalciferol. 5. Fluticasone propionate. 6. Furosemide. 7. Ipratropium and albuterol. 8. Metoprolol. 9. Pravastatin. 10. Prednisone 10 mg p.o. daily. 11. Ipratropium bromide. 12. Vitamin C. 13. Ocuvite soft gel. ALLERGIES: 1. DOXYCYCLINE. 2. PENICILLIN. REVIEW OF SYSTEMS: The patient notes that she has had a cough with mild dyspnea on exertion and some sputum expectoration. She denies any overt chest pain or palpitations. She denies any abdominal pain, constipation, diarrhea, nausea, vomiting. She denies any dysuria or hematuria. She denies any numbness or tingling in the lower extremities. She does have pain associated with her ulcers and sacral decubitus ulcer and she has some scratches on her knees but notes that this is mild in nature. The remainder of the review of systems is negative. PHYSICAL EXAMINATION: VITAL SIGNS: Pulse 104, respirations 18. Pain is 3/5 on a numeric rating scale. It does not appear that blood pressure has been recorded. Oxygen saturation is 92% on 3L nasal cannula. GENERAL: The patient is a pleasant though somewhat chronically ill-appearing lady sitting in recliner in no acute distress today. HEENT: Head is normocephalic, atraumatic. The patient wears glasses. Oxygen delivery via nasal cannula. CARDIOVASCULAR: Pulse is tachycardic but regular. RESPIRATORY: Even unlabored work of breathing. MUSCULOSKELETAL: The patient is fairly tender to palpation at an apex of kyphotic curvature in the middle to lower thoracic spine consistent with the area of her fractures. NEUROLOGIC: The patient is able to stand from seated position with some assistance. She is able to ambulate with a shuffling stooped forward gait with no focal overt neurologic deficit. SKIN: The patient has changes of chronic vascular insufficiency in the lower extremities with some mild redness bilaterally. There is a left anterior owusu ulceration that does not appear to be infected but rather granulating in. She also has sacral decubitus ulcers bilaterally which do not appear to be overtly infected. Dressings were taken down. Again, the wounds appear to be noninfected and nondraining. EXTREMITIES: Moves all extremities x4. PSYCHIATRIC: Normal mood and affect appreciated. REPORTS: Chest CT performed 02/04/2017 demonstrated no evidence of interstitial lung disease, bibasilar atelectasis, and kyphosis from T8, T9, and T10. Vertebra plana deformities. Echocardiogram 02/04/2017 demonstrated no pericardial effusion, trace tricuspid regurgitation, mildly elevated right ventricular systolic pressures, mild to moderate pulmonary hypertension by echo. Trace aortic regurgitation, trace mitral regurgitation. Normal right ventricular systolic function. Left ventricular ejection fraction is normal. Grade I mild diastolic dysfunction noted. Lumbar spine MRI demonstrated L5-S1 minimal posterior disk bulging, moderate bilateral facet and ligamentum hypertrophy. Chronic L2 compression deformity with less than 25% loss. Thoracic spine MRI 02/04/2017; compression deformity subacute to chronic T8, 9, and 10 with marrow edema at T8. Labs; a white count elevated at 13.5 with a left shift. Urinalysis normal. PT, PTT, INR are normal. Bedside glucose 197. IMPRESSION: Thoracic compression fractures T8, 9, and 10. ASSESSMENT AND PLAN: The patient is a 72-year-old female with a complicated past medical history including suspicion for a pulmonary hypertension, COPD with a chronic oxygen requirement, and chronic lower extremity and sacral decubitus ulcers. The patient has had worsening of function overall and has been limited to sitting in her recliner at home secondary to the severe pain in her mid back. Options were discussed at length with the patient including conservative management versus proceeding with a procedure such as kyphoplasty to help with the pain. The patient is quite interested in consideration for kyphoplasty. Given the patient's elevated white count we will follow up sequential white blood count with a plan to proceed with kyphoplasty on , 02/06, pending no other changes. The patient will continue on Levaquin. At this point there are no overt areas of suspected infection. However, despite that she is on steroids we would still like to see an improvement in her white count or at least stability to this prior to proceeding to minimize infection risk. Additionally we will plan to proceed with kyphoplasty at T8 and T9 given appearance on MRI. We may possibly perform kyphoplasty on T10 depending upon appearance during surgical performance and examination under fluoroscopy. Otherwise, the patient will continue on gabapentin, Toradol as needed, and oxycodone 10 mg p.o. q.6 hours p.r.n. pain which to this point has been helpful. DICTATING PHYSICIAN: SAMANTHA BLCAK M.D. [id number] [id number] ID: [id number] JOB#: [id number] ACCT: [id number] cc:SAMANTHA BLACK M.D. >
[2017-02-05 19:41] LABS: ARTERIAL BLOOD BASE EXCESS 11.8 mmol/L; ARTERIAL BLOOD H2CO3 1.82 mmol/L (1.05-1.35); ARTERIAL BLOOD HCO3 38.3 mmol/L (20-26); ARTERIAL BLOOD O2 SATURATION 94.2 % (94-98); ARTERIAL BLOOD PCO2 60.4 mmHg (35-45); ARTERIAL BLOOD PH 7.42 (7.35-7.45); ARTERIAL BLOOD PO2 71.5 mmHg (80-100); ARTERIAL BLOOD TOTAL CO2 40.2 mmol/L (21-25)
[2017-02-05 19:44] LABS: ARTERIAL BLOOD FIO2 3L
[2017-02-05] MEDS: GABAPENTIN 300 MG CAPSULE PO SCH (22:37)
[2017-02-05] MEDS: KETOROLAC TROMETHAMINE INJ/PF 30 MG/1 ML SDV IV PRN (22:37)
[2017-02-05] MEDS: SENNOSIDES/DOCUSATE 8.6-50 MG 1 EACH TABLET PO SCH (22:37)
[2017-02-05] MEDS: TIOTROPIUM BROMIDE DPI 5 CAP/KIT (18 MCG/CAP) IH SCH (22:38)
[2017-02-05] MEDS: ROFLUMILAST 500 MCG TABLET PO SCH (22:38)
[2017-02-05] MEDS: LIDOCAINE 5% (700 MG) TRANSDERMAL ADH..PATCH TP SCH (22:38)
[2017-02-05] MEDS: ATORVASTATIN CALCIUM 10 MG TABLET PO SCH (22:38)
[2017-02-05 23:55] LABS: APPEARANCE,URINE CLEAR; BILIRUBIN,URINE NEGATIVE (NEGATIVE); COLOR,URINE YELLOW; GLUCOSE, URINE NEGATIVE (NEGATIVE); KETONES,URINE NEGATIVE (NEGATIVE); LEUKOCYTE ESTERASE,URINE NEGATIVE (NEGATIVE); NITRITE,URINE NEGATIVE (NEGATIVE); PROTEIN,URINE NEGATIVE (NEGATIVE); URINE SPECIFIC GRAVITY 1.021; UROBILINOGEN,URINE NEGATIVE mg/dL (<2.0)
[2017-02-06] MEDS: IPRATROPIUM/ALBUTEROL 0.5-2.5 MG/3 ML AMPUL NEB SCH ×6 (03:47→23:18)
[2017-02-06] MEDS: KETOROLAC TROMETHAMINE INJ/PF 30 MG/1 ML SDV IV PRN ×2 (04:12→14:04)
[2017-02-06 05:21] LABS: ABSOLUTE LYMPHOCYTES (AUTO) 0.5 10^3/uL (0.5-4.7); ABSOLUTE MONOCYTES (AUTO) 0.5 10^3/uL (0.1-1.4); ABSOLUTE NEUT (AUTO) 8.5 10^3/uL (1.7-8.2); HEMATOCRIT 30.6 % (36.0-47.0); HEMOGLOBIN 10.2 g/dL (12.0-15.5); LYMPHOCYTES % (AUTO) 5.7 % (13-45); MEAN CORPUSCULAR HEMOGLOBIN 32.4 pg (27.0-33.4); MEAN CORPUSCULAR HGB CONC 33.5 g/dL (32.0-36.0); MEAN CORPUSCULAR VOLUME 97 fl (80-97); MONOCYTES % (AUTO) 5.6 % (3-13); PLATELET COUNT 264 10^3/uL (150-450); RED BLOOD COUNT 3.17 10^6/uL (3.72-5.28); RED CELL DISTRIBUTION WIDTH 15.9 % (11.5-14.0); SEGMENTED NEUTROPHILS % (AUTO) 88.7 % (42-78); TOTAL CELLS COUNTED % (AUTO) 100 %; WHITE BLOOD COUNT 9.5 10^3/uL (4.0-10.5)
[2017-02-06 05:29] LABS: INTERNATIONAL RATION (INR) 0.97; PROTHROMBIN TIME 13.6 SEC (11.4-15.4)
[2017-02-06 05:30] LABS: PARTIAL THROMBOPLASTIN TIME 31.1 SEC (23.5-35.8)
[2017-02-06] MEDS ORDERED: SODIUM BICARBONATE 8.4% INJ 50 MEQ/50 ML DISP.SYRIN ONE (06:27)
[2017-02-06] MEDS ORDERED: LIDOCAINE 1% INJ-PF (10 MG/ML) 30 ML SDV ONE ×3 (06:27→07:49)
[2017-02-06] MEDS ORDERED: MIDAZOLAM 2 MG/2 ML INJ ONE (07:13)
[2017-02-06] MEDS ORDERED: KETAMINE HCL INJ 500 MG/10 ML VIAL ONE (07:13)
[2017-02-06] MEDS ORDERED: PROPOFOL INJ 200 MG/20 ML VIAL IV ONE (07:13)
[2017-02-06] MEDS ORDERED: CLINDAMYCIN 600 MG/D5W RTU 600 MG/50 ML RTUPB IV ONE (07:29)
[2017-02-06] MEDS ORDERED: METOPROLOL TARTRATE PF/INJ 5 MG/5 ML SDV IV ONE (08:19)
[2017-02-06] MEDS ORDERED: FENTANYL CITRATE INJ/PF 100 MCG/2 ML AMPUL ONE (08:19)
--- NOTE | 2017-02-06 08:23 | PDOC CONSULTATION ---
Consultation Consult Date: 02/05/17 Attending physician:: PEARL CORONA Consult reason:: end stage lung History of Present Illness Admission Date/PCP: 02/03/17 19:57 History of Present Illness: SHAUN DE LA CRUZ is a 72 year old female with a history of O2 dependent steroid- dependent COPD is had several laps vertebrae for several more recently collapsed and that she her pain increased she subsequently presented for possible vertebroplasty. She is a PCO2 retainer as well as being oxygen dependent and her most recent FEV1& FVC less than 1 L. Approximately 50-pack- year history of smoking but has not smoked in the last 14 years denies nausea vomiting fevers chills chest pain she admits to having chronic edema,2 pillow orthopnea occasional PND &nocturnal cough. 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 Denies any recent travel and is to snoring restless sleep frequent nocturia unrestful sleep and excessive daytime somnolence. 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 Smoking Status: Current Some Day Smoker Cigarettes Packs Per Day: 0.1 - 1-2 rarely Passive smoke exposure as: Both Frequency of Alcohol Use: None Hx Recreational Drug Use: No Hx Prescription Drug Abuse: No Do you have pets?: No Have you had any respiratory illnesses as a child?: No Have you been exposed to any sick contacts recently?: No Have you had any recent respiratory illnesses?: No Have you travelled outside of [place] in the past 12 months?: No - Advance Directive Resuscitation Status: Full Code Family History Family History: Arthritis, CAD, Malignancy Parental Family History Reviewed: Yes Children Family History Reviewed: Yes Sibling(s) Family History Reviewed.: Yes Medication/Allergy Home Medications: Albuterol Sulfate [Proair HFA] 2 puff IH Q4HP PRN 02/03/17 Budesonide/Formoterol Fumarate [Symbicort 160-4.5 Mcg Inhaler] 2 puff IH Q12 09/14 Calcium Carbonate/Vitamin D3 [Calcium 500+D Tablet Chew] 1 tab.chew PO DAILY 09/14 Ergocalciferol (Vitamin D2) [Vitamin D2] 50,000 unit PO .QMONTHLY 02/03/17 Fluticasone Propionate [Flonase Nasal [place] 50 Mcg/[place] 16 gm] 1 spray NAREB Q12 02/03/17 Furosemide [Lasix 40 mg Tablet] 40 mg PO QAM 02/03/17 Ipratropium/Albuterol Sulfate [Duoneb 3 ml Ampul] 3 ml NEB RTQ4 02/03/17 Metoprolol Tartrate [Lopressor 50 mg Tablet] 25 mg PO Q12 02/03/17 Pravastatin Sodium [Pravachol] 20 mg PO QHS 02/03/17 Prednisone [Deltasone 10 mg Tablet] 10 mg PO DAILY 02/03/17 Tiotropium [place] [Spiriva Handihaler 5 Cap/Kit (18 Mcg/Cap)] 1 cap IH DAILY Vit C/Vit E/Lutein/Min/[place]-3 [Ocuvite Softgel] 1 cap PO DAILY 02/03/17 Allergies/Adverse Reactions: doxycycline Allergy (Verified 02/03/17 10:58) Penicillins Allergy (Verified 02/03/17 10:58) Review of Systems Constitutional: PRESENT: fatigue, weakness. ABSENT: anorexia, chills, fever(s) , headache(s), night sweats Eyes: PRESENT: visual disturbances Nose, Mouth, and Throat: ABSENT: headache(s), sore throat, vertigo Cardiovascular: PRESENT: dyspnea on exertion, edema, orthropnea. ABSENT: chest pain, palpitations Respiratory: PRESENT: cough, dyspnea, sputum. ABSENT: hemoptysis Gastrointestinal: PRESENT: dysphagia, heartburn. ABSENT: abdominal pain, bloating, coffee ground emesis, constipation, diarrhea, hematemesis, hematochezia, melena, nausea, vomiting Genitourinary: PRESENT: nocturia. ABSENT: difficulty urinating, dysuria, hematuria Musculoskeletal: PRESENT: back pain, muscle weakness. ABSENT: deformity Integumentary: ABSENT: pruritus Neurological: PRESENT: weakness. ABSENT: abnormal gait, confusion, convulsions , dizziness, focal weakness, frequent falls, numbness, paresthesias, restless legs, syncope, tingling, vertigo Psychiatric: PRESENT: anxiety. ABSENT: hallucinations, homidical ideation, suicidal ideation Endocrine: ABSENT: cold intolerance, flushing, heat intolerance, menstrual abnormalities, polydipsia, polyuria Hematologic/Lymphatic: PRESENT: easy bleeding, easy bruising Allergic/Immunologic: ABSENT: seasonal rhinorrhea Physical Exam Vital Signs: Temp Pulse Resp BP Pulse Ox 98.2 F 105 H 19 150/65 H 100 02/06/17 06:08 02/06/17 06:08 02/06/17 06:08 02/06/17 06:08 02/06/17 06:08 Intake & Output 02/05/17 02/06/17 02/07/17 06:59 06:59 06:59 Intake Total 840 1060 Output Total 450 Balance 390 1060 Weight 69.2 kg 69.2 kg General appearance: PRESENT: cooperative, disheveled, mild distress, obese, well -developed Head exam: PRESENT: atraumatic, normocephalic Eye exam: PRESENT: conjunctiva pale, EOMI Mouth exam: PRESENT: dry mucosa, neck supple Neck exam: ABSENT: carotid bruit, JVD, lymphadenopathy, thyromegaly Respiratory exam: PRESENT: decreased breath sounds, prolonged expiratory phas, rales, rhonchi, symmetrical, unlabored, wheezes. ABSENT: accessory muscle use, chest wall tenderness, clear to auscultation filemon, crackles, retraction, stridor , tachypnea Cardiovascular exam: PRESENT: RRR, +S1, +S2, systolic murmur. ABSENT: bradycardia Pulses: PRESENT: normal radial pulses GI/Abdominal exam: PRESENT: normal bowel sounds, soft. ABSENT: distended, guarding, mass, organolmegaly, rebound, tenderness Extremities exam: ABSENT: calf tenderness, clubbing, joint swelling, tenderness Musculoskeletal exam: ABSENT: ambulatory, dislocation, full ROM, tenderness Neurological exam: PRESENT: alert, awake Psychiatric exam: PRESENT: normal mood Skin exam: PRESENT: dry, warm, other - Diffuse subcutaneous ecchymosis Results Laboratory Results: 02/06/17 04:19 02/03/17 19:42 02/05/17 02/05/17 02/05/17 13:05 19:25 23:34 WBC 12.7 H RBC 3.21 L Hgb 10.5 L Hct 31.3 L MCV 98 H MCH 32.6 MCHC 33.4 RDW 16.1 H Plt Count 303 Seg Neutrophils % Not Reportable Lymphocytes % Not Reportable Monocytes % Not Reportable Eosinophils % Not Reportable Basophils % Not Reportable Absolute Neutrophils Not Reportable Absolute Lymphocytes Not Reportable Absolute Monocytes Not Reportable Absolute Eosinophils Not Reportable Absolute Basophils Not Reportable Carbonic Acid 1.82 H HCO3/H2CO3 Ratio 21:1 ABG pH 7.42 ABG pCO2 60.4 H ABG pO2 71.5 L ABG HCO3 38.3 H ABG O2 Saturation 94.2 ABG Base Excess 11.8 FiO2 3L Urine Color YELLOW Urine Appearance CLEAR Urine pH 5.0 Ur Specific [place] 1.021 Urine Protein NEGATIVE Urine Glucose (UA) NEGATIVE Urine Ketones NEGATIVE Urine Blood NEGATIVE Urine Nitrite NEGATIVE Ur Leukocyte Esterase NEGATIVE Urine WBC (Auto) 0 Urine RBC (Auto) 1 02/06/17 04:19 WBC 9.5 RBC 3.17 L Hgb 10.2 L Hct 30.6 L MCV 97 MCH 32.4 MCHC 33.5 RDW 15.9 H Plt Count 264 Seg Neutrophils % 88.7 H Lymphocytes % 5.7 L Monocytes % 5.6 Eosinophils % 0.0 Basophils % 0.0 Absolute Neutrophils 8.5 H Absolute Lymphocytes 0.5 Absolute Monocytes 0.5 Absolute Eosinophils 0.0 Absolute Basophils 0.0 Carbonic Acid HCO3/H2CO3 Ratio ABG pH ABG pCO2 ABG pO2 ABG HCO3 ABG O2 Saturation ABG Base Excess FiO2 Urine Color Urine Appearance Urine pH Ur Specific [place] Urine Protein Urine Glucose (UA) Urine Ketones Urine Blood Urine Nitrite Ur Leukocyte Esterase Urine WBC (Auto) Urine RBC (Auto) Impressions: Chest X-Ray 02/03/17 00:00 IMPRESSION: Bibasilar bandlike atelectasis Trace right pleural fluid. Chest CT 02/04/17 00:00 IMPRESSION: No CT evidence of interstitial lung disease Kyphosis from T8, T9, and T10 vertebra plana deformities Bibasilar atelectasis Lumbar Spine MRI 02/04/17 00:00 IMPRESSION: No lumbar acute or subacute wedge compression deformity. Thoracic Spine MRI 02/04/17 00:00 IMPRESSION: Greater than 50% compression deformities at T8, T9, and T10 subacute to chronic in appearance. There is minimal marrow edema at the T8 level. Assessment & Plan - Diagnosis (1) Chronic respiratory failure with hypoxia and hypercapnia Is this a current diagnosis for this admission?: Yes Plan: Suggest a small amount BiPAP example expiratory 10 cm expiratory 5 cm so that perioperative sedation will not increase her PCO2 (2) Chronic respiratory failure with hypoxia, on home O2 therapy Is this a current diagnosis for this admission?: Yes Plan: His recent FVC and FEV1 less than 1 L any mobility will be exacerbated she has absolutely no rubs or (3) COPD exacerbation Is this a current diagnosis for this admission?: Yes Plan: Suspect she is at or near baseline and obviously has no reserve I suspect she can tolerate the procedure but there will not be any margin for error. Generic Name Dose Route Start Last Admin Trade Name Freq PRN Reason Stop Dose Admin Albuterol/Ipratropium 3 ml 02/03/17 20:00 02/06/17 03:47 Duoneb 3 Ml Ampul NEB 03/05/17 19:59 3 ml RTQ4 MARJORIE Budesonide/Formoterol Fumarate 2 puff 02/03/17 22:00 02/05/17 22:37 Symbicort Hfa 160-4.5 Mcg Inhaler 6 Gm IH 03/05/17 21:59 2 puff Q12 MARJORIE Prednisone 20 mg 02/04/17 10:00 02/05/17 17:42 Deltasone 10 Mg Tablet PO 03/06/17 09:59 20 mg BID MARJORIE Tiotropium [place] 1 cap 02/03/17 22:00 02/05/17 22:38 Spiriva Handihaler 5 Cap/Kit (18 Mcg/Cap) IH 03/05/17 21:59 1 cap QHS MARJORIE Roflumilast 500 mcg 02/05/17 22:00 02/05/17 22:38 Daliresp 500 Mcg Tablet PO 03/07/17 21:59 500 mcg QHS MARJORIE Albuterol 2 puff 02/03/17 20:00 02/04/17 18:31 Proair Hfa Inhalation Aerosol 8.5 Gm Mdi IH 03/05/17 19:59 2 puff Q4HP PRN FOR WHEEZING (4) Current chronic use of systemic steroids Is this a current diagnosis for this admission?: Yes Plan: Fortunately wound will not be large wound healing should not be an issue
[2017-02-06] MEDS ORDERED: ONDANSETRON HCL INJ/PF 4 MG/2 ML SDV IV PRN (08:30)
[2017-02-06] MEDS: FUROSEMIDE 40 MG TABLET PO SCH (08:32)
[2017-02-06] MEDS ORDERED: MORPHINE SULFATE 10 MG/ML INJ IV PRN (08:32)
[2017-02-06] MEDS ORDERED: MEPERIDINE HCL/PF INJ 25 MG/1 ML DISP.SYRIN IV PRN (08:32)
[2017-02-06] MEDS ORDERED: PROMETHAZINE HCL INJ 25 MG/1 ML VIAL IV PRN ×2 (08:32)
[2017-02-06] MEDS ORDERED: FENTANYL CITRATE INJ/PF 100 MCG/2 ML AMPUL IV PRN ×3 (08:32)
[2017-02-06] MEDS ORDERED: DIPHENHYDRAMINE HCL 50 MG/ML VIAL IV PRN (08:32)
[2017-02-06] MEDS ORDERED: OXYCODONE-ACETAMINOPHEN 5-325 MG TABLET PO PRN ×2 (08:32)
[2017-02-06] MEDS ORDERED: CLINDAMYCIN PHOSPHATE INJ 300 MG/2 ML SDV ONE (09:43)
[2017-02-06] MEDS ORDERED: CLINDAMYCIN 300 MG/D5W RTU 300 MG/50 ML RTUPB IV PRN (09:52)
--- NOTE | 2017-02-06 10:02 | OPERATIVE REPORT E ---
Operative Report NAME: SHAUN DE LA CRUZ : 1945 AGE: 72Y DATE OF SURGERY: 02/06/2017 ROOM: PREOPERATIVE DIAGNOSIS: MULTILEVEL THORACIC COMPRESSION FRACTURE T8, T9, AND T10. POSTOPERATIVE DIAGNOSIS: MULTILEVEL THORACIC COMPRESSION FRACTURE T8, T9, AND T10. OPERATION: Kyphoplasty under fluoroscopic guidance at T8, T9, and T10. SURGEON: NANO CREWS M.D. ANESTHESIA: MAC TOUR AGENT: Dr. Pramod Melendez BLOOD LOSS: 10 mL INDICATIONS: Intractable pain. COMPLICATIONS: None. PROCEDURE NOTE: After obtaining informed consent, patient was taken to the operating room. She was advised regarding all the risks and benefits including serious neurological injury, serious infection, bleeding, allergic reaction, , and a serious aggravation of pain. Once in the operating room, she was placed comfortably in the prone position as assessed visually and verbally. Monitors were applied per anesthesia. She was then prepped and draped in the usual fashion with placement of the fluoroscopy units in their desired location to identify the affected fracture regions. Beginning at the T8 level using a right paramedian approach to the pedicle, the skin was anesthetized as was the subcutaneous tissue down to the periosteum. It should be noted that at all times multiple fluoroscopic views were taken to assure a safe place under local anesthesia. A small incision was then made and the skin followed by the Express trocar. The Express trocar was advanced in a peripedicular location and into the paramedian location on the right side of the vertebral body. This was repeated on the left and both balloons were inflated giving the standard dumbbell appearance. Attention was then directed towards the T9 fracture. The right-sided approach was taken as described above. The trocar was advanced followed by placement of the balloon which ended in an near midline position allowing for a single needle approach. The final level was done at the T10 using a left paramedian approach. This, too, was performed with multiple views assuring safe placement of the trocars and balloons. The location of the balloons and the trocars allowed for a single placement at this level too. Cement was then instilled beginning at the T8 level for a total of 2.4 mL, the T9 level a total of 1.8 mL, and at the T10 level a total of 1.4 mL. There was some disc extravasation at the T9 level and possibly at the T10 level of the cement. There was no retrograde spread into the canal, nor did there appear to be any vascular embolization of cement at any of the levels. The decision was made to complete the procedures placing trocars in all the stylets when the cement was hardened. The trocars were all removed. The region was cleansed. Sterile dressings were applied and the patient was taken to the PACU for further postoperative care and management. DICTATING PHYSICIAN: NANO CREWS M.D. [id number] PHY#: [id number] ID: [id number] JOB#: [id number] ACCT: [id number] cc:NANO CREWS M.D. > MTDD
[2017-02-06] MEDS: DOCUSATE SODIUM 100 MG CAPSULE PO SCH ×2 (13:38→15:12)
[2017-02-06] MEDS: LACTULOSE SYRUP 20 GM/30 ML UDCUP PO SCH ×2 (13:38→22:01)
[2017-02-06] MEDS: BUDESONIDE/FORMOTEROL 160-4.5 MCG 60 PUFF/6 GM MDI IH SCH ×2 (13:55→22:01)
[2017-02-06] MEDS: CALCIUM CARBONATE 250 MG/VITAMIN D3 125 UNIT TABLET PO SCH (13:58)
[2017-02-06] MEDS: LEVOFLOXACIN 500 MG TABLET PO SCH (13:59)
[2017-02-06] MEDS: FLUTICASONE NASAL SPRAY 50 MCG/SPRY 120 SPRAY/16 GM NAREB SCH ×2 (13:59→22:01)
[2017-02-06] MEDS: METOPROLOL TARTRATE 25 MG TABLET PO SCH ×2 (14:04→21:59)
[2017-02-06] MEDS: PREDNISONE 20 MG TABLET PO SCH ×2 (14:04→16:59)
[2017-02-06] MEDS: PHARMACY COMMUNICATION ORDER MC SCH (14:06)
--- NOTE | 2017-02-06 15:34 | PDOC PROGRESS REPORT ---
Subjective Progress Note for:: 02/06/17 Subjective:: Patient Back to the room recently and sedated ROS Unable to obtain due to sedation All significant laboratories and diagnostics have been reviewed Physical Exam Vital Signs: Temp Pulse Resp BP Pulse Ox 97 F L 106 H 14 144/63 H 98 02/06/17 12:00 02/06/17 12:00 02/06/17 12:00 02/06/17 12:00 02/06/17 12:00 Intake & Output 02/05/17 02/06/17 02/07/17 06:59 06:59 06:59 Intake Total 840 1060 350 Output Total 450 20 Balance 390 1060 330 Weight 69.2 kg 69.2 kg General appearance: PRESENT: no acute distress, cooperative Head exam: PRESENT: atraumatic, normocephalic Eye exam: PRESENT: EOMI, PERRLA Mouth exam: PRESENT: moist, neck supple Neck exam: ABSENT: full ROM, JVD, tenderness Respiratory exam: PRESENT: clear to auscultation filemon Cardiovascular exam: PRESENT: RRR. ABSENT: diastolic murmur, systolic murmur Vascular exam: PRESENT: normal capillary refill GI/Abdominal exam: PRESENT: normal bowel sounds, soft. ABSENT: tenderness Extremities exam: ABSENT: joint swelling, pedal edema Neurological exam: PRESENT: other - sedated Results Laboratory Results: 02/06/17 04:19 02/03/17 19:42 02/05/17 02/05/17 02/05/17 13:05 19:25 23:34 WBC 12.7 H RBC 3.21 L Hgb 10.5 L Hct 31.3 L MCV 98 H MCH 32.6 MCHC 33.4 RDW 16.1 H Plt Count 303 Seg Neutrophils % Not Reportable Lymphocytes % Not Reportable Monocytes % Not Reportable Eosinophils % Not Reportable Basophils % Not Reportable Absolute Neutrophils Not Reportable Absolute Lymphocytes Not Reportable Absolute Monocytes Not Reportable Absolute Eosinophils Not Reportable Absolute Basophils Not Reportable Carbonic Acid 1.82 H HCO3/H2CO3 Ratio 21:1 ABG pH 7.42 ABG pCO2 60.4 H ABG pO2 71.5 L ABG HCO3 38.3 H ABG O2 Saturation 94.2 ABG Base Excess 11.8 FiO2 3L Urine Color YELLOW Urine Appearance CLEAR Urine pH 5.0 Ur Specific [place] 1.021 Urine Protein NEGATIVE Urine Glucose (UA) NEGATIVE Urine Ketones NEGATIVE Urine Blood NEGATIVE Urine Nitrite NEGATIVE Ur Leukocyte Esterase NEGATIVE Urine WBC (Auto) 0 Urine RBC (Auto) 1 02/06/17 04:19 WBC 9.5 RBC 3.17 L Hgb 10.2 L Hct 30.6 L MCV 97 MCH 32.4 MCHC 33.5 RDW 15.9 H Plt Count 264 Seg Neutrophils % 88.7 H Lymphocytes % 5.7 L Monocytes % 5.6 Eosinophils % 0.0 Basophils % 0.0 Absolute Neutrophils 8.5 H Absolute Lymphocytes 0.5 Absolute Monocytes 0.5 Absolute Eosinophils 0.0 Absolute Basophils 0.0 Carbonic Acid HCO3/H2CO3 Ratio ABG pH ABG pCO2 ABG pO2 ABG HCO3 ABG O2 Saturation ABG Base Excess FiO2 Urine Color Urine Appearance Urine pH Ur Specific [place] Urine Protein Urine Glucose (UA) Urine Ketones Urine Blood Urine Nitrite Ur Leukocyte Esterase Urine WBC (Auto) Urine RBC (Auto) 02/04/17 19:00 Sputum Gram Stain - Final 02/04/17 19:00 Sputum Sputum Culture - Final Corynebacterium Striatum Normal Gayatri Absent Impressions: Chest X-Ray 02/03/17 00:00 IMPRESSION: Bibasilar bandlike atelectasis Trace right pleural fluid. Chest CT 02/04/17 00:00 IMPRESSION: No CT evidence of interstitial lung disease Kyphosis from T8, T9, and T10 vertebra plana deformities Bibasilar atelectasis Lumbar Spine MRI 02/04/17 00:00 IMPRESSION: No lumbar acute or subacute wedge compression deformity. Thoracic Spine MRI 02/04/17 00:00 IMPRESSION: Greater than 50% compression deformities at T8, T9, and T10 subacute to chronic in appearance. There is minimal marrow edema at the T8 level. Assessment & Plan - Diagnosis (1) COPD exacerbation Is this a current diagnosis for this admission?: Yes Plan: She appears to be doing well. Exacerbation resolved. No signs of pulmonary fibrosis. Continue present management. (2) Chronic hypoxemic respiratory failure Is this a current diagnosis for this admission?: Yes Plan: Continue oxygen supplementation (3) Chronic pain Qualifiers: Chronic pain type: other chronic pain Qualified Code(s): G89.29 - Other chronic pain Is this a current diagnosis for this admission?: Yes Plan: Having an acute episode due to thoracic fractures. Patient underwent vertebroplasty of T8, T9 and T10 and tolerated procedure well. .To order physical therapy but may be a slow recovery due to her comorbidities. (4) Chronic ulcer of lower extremity with fat layer exposed Qualifiers: Laterality: right Qualified Code(s): L97.912 - Non-pressure chronic ulcer of unspecified part of right lower leg with fat layer exposed Is this a current diagnosis for this admission?: Yes Plan: Continue Santyl daily (5) Current chronic use of systemic steroids Is this a current diagnosis for this admission?: Yes Plan: Decrease current dose of steroids (6) HTN (hypertension) Qualifiers: Hypertension type: essential hypertension Qualified Code(s): I10 - Essential (primary) hypertension Is this a current diagnosis for this admission?: Yes Plan: Continue outpatient regimen - Time Time Spent with patient: Less than 15 minutes Medications reviewed and adjusted accordingly: Yes Anticipated discharge: Home with Homehealth - Inpatient Certification Based on my medical assessment, after consideration of the patient's comorbidities, presenting symptoms, or acuity I expect that the services needed warrant INPATIENT care.: Yes I certify that my determination is in accordance with my understanding of Medicare's requirements for reasonable and necessary INPATIENT services [42 CFR 412.3e].: Yes Medical Necessity: Need for Pain Control, Risk of Complication if Not Cared For in Hospital
--- NOTE | 2017-02-06 15:47 | RADIOLOGY REPORT (SQ) ---
EXAM DESCRIPTION: T SPINE AP/LAT; NO CHG FLUORO COMPLETED DATE/TIME: 02/06/2017 11:08 am REASON FOR STUDY: KYPHOPLASTY MULTI LEVEL ASSISTED WITH FLUORO IN OR I27.29 OTHER SECONDARY PULMONA RY HYPERTENSION J84.10 PULMONARY FIBROSIS, UNSPECIFIED S32.000A WEDGE COMPRESSION FRACTURE OF UNSP LUMBAR VERTEBRA, COMPARISON: MRI thoracic spine 02/04/2017 FLUOROSCOPY TIME: 13.7 minutes total fluoro time 68 images saved to PACS. TECHNIQUE: Intra-operative images acquired during surgical procedure to evaluate progress. NUMBER OF IMAGES: 68 digital images LIMITATIONS: None. FINDINGS: Imaging and fluoro during kyphoplasty at 3 levels in the thoracic spine. Please see the o perative report for further details IMPRESSION: Intra procedural imaging and fluoro COMMENT: Quality ID [id number]: Final reports for procedures using fluoroscopy that document radiation exp osure indices, or exposure time and number of fluorographic images (if radiation exposure indices are not available) Please consult full operative report of the attending physician for description of the procedure. TECHNICAL DOCUMENTATION: JOB ID: [id number] [employer]- All Rights Reserved
[2017-02-06] MEDS: OXYCODONE HCL IR 5 MG TABLET PO PRN (17:11)
[2017-02-06] MEDS: COLLAGENASE CLOSTRIDIUM HIST. OINT 30 GM TP SCH (19:39)
[2017-02-06] MEDS: ATORVASTATIN CALCIUM 10 MG TABLET PO SCH (21:58)
[2017-02-06] MEDS: GABAPENTIN 300 MG CAPSULE PO SCH (22:00)
[2017-02-06] MEDS: SENNOSIDES/DOCUSATE 8.6-50 MG 1 EACH TABLET PO SCH (22:00)
[2017-02-06] MEDS: LIDOCAINE 5% (700 MG) TRANSDERMAL ADH..PATCH TP SCH (22:02)
[2017-02-06] MEDS: TIOTROPIUM BROMIDE DPI 5 CAP/KIT (18 MCG/CAP) IH SCH (22:03)
[2017-02-06] MEDS: ROFLUMILAST 500 MCG TABLET PO SCH (23:04)
[2017-02-07] MEDS: OXYCODONE HCL IR 5 MG TABLET PO PRN ×2 (00:24→09:53)
[2017-02-07] MEDS: IPRATROPIUM/ALBUTEROL 0.5-2.5 MG/3 ML AMPUL NEB SCH ×3 (03:28→11:50)
[2017-02-07] MEDS: CALCIUM CARBONATE 250 MG/VITAMIN D3 125 UNIT TABLET PO SCH (09:52)
[2017-02-07] MEDS: FUROSEMIDE 40 MG TABLET PO SCH (09:52)
[2017-02-07] MEDS: BUDESONIDE/FORMOTEROL 160-4.5 MCG 60 PUFF/6 GM MDI IH SCH (09:52)
[2017-02-07] MEDS: PREDNISONE 20 MG TABLET PO SCH (09:53)
[2017-02-07] MEDS: METOPROLOL TARTRATE 25 MG TABLET PO SCH (09:53)
[2017-02-07] MEDS: LEVOFLOXACIN 500 MG TABLET PO SCH (09:53)
[2017-02-07] MEDS: FLUTICASONE NASAL SPRAY 50 MCG/SPRY 120 SPRAY/16 GM NAREB SCH (09:53)
[2017-02-07] MEDS: LACTULOSE SYRUP 20 GM/30 ML UDCUP PO SCH (09:54)
[2017-02-07] MEDS: DOCUSATE SODIUM 100 MG CAPSULE PO SCH (09:54)
[2017-02-07] MEDS: COLLAGENASE CLOSTRIDIUM HIST. OINT 30 GM TP SCH (09:54)
[2017-02-07] MEDS: PHARMACY COMMUNICATION ORDER MC SCH (09:54)
--- NOTE | 2017-02-07 10:55 | PDOC PROGRESS REPORT ---
Subjective Progress Note for:: 02/07/17 - End-stage lung disease Subjective:: s/p vertebroplasty"a litttle drowsy but less pain" Physical Exam Vital Signs: Temp Pulse Resp BP Pulse Ox 97.5 F 83 20 157/62 H 96 02/07/17 00:00 02/07/17 03:28 02/07/17 03:28 02/07/17 00:00 02/07/17 03:28 Intake & Output 02/06/17 02/07/17 02/08/17 06:59 06:59 06:59 Intake Total 1060 1310 Output Total 420 Balance 1060 890 Weight 69.2 kg General appearance: PRESENT: no acute distress, cooperative, disheveled, well- developed Head exam: PRESENT: atraumatic, normocephalic Eye exam: PRESENT: conjunctiva pale, EOMI Mouth exam: PRESENT: dry mucosa, neck supple, tongue midline Neck exam: ABSENT: carotid bruit, JVD, lymphadenopathy, meningismus, thyromegaly , tracheal deviation, tracheostomy Respiratory exam: PRESENT: decreased breath sounds, prolonged expiratory phas, rhonchi, symmetrical, unlabored, wheezes. ABSENT: accessory muscle use, chest wall tenderness, clear to auscultation filemon, crackles, rales, retraction, stridor , tachypnea Cardiovascular exam: PRESENT: RRR, +S1, +S2, systolic murmur, tachycardia. ABSENT: irregular rhythm Pulses: PRESENT: normal radial pulses GI/Abdominal exam: PRESENT: normal bowel sounds, soft. ABSENT: distended, guarding, mass, organolmegaly, rebound, tenderness Extremities exam: ABSENT: calf tenderness, clubbing, joint swelling, pedal edema , tenderness Musculoskeletal exam: ABSENT: deformity, dislocation, tenderness Neurological exam: PRESENT: awake Psychiatric exam: PRESENT: normal mood Skin exam: PRESENT: dry, warm Results Laboratory Results: 02/06/17 04:19 02/03/17 19:42 02/04/17 19:00 Sputum Gram Stain - Final 02/04/17 19:00 Sputum Sputum Culture - Final Corynebacterium Striatum Normal Gayatri Absent Impressions: Chest X-Ray 02/03/17 00:00 IMPRESSION: Bibasilar bandlike atelectasis Trace right pleural fluid. Chest CT 02/04/17 00:00 IMPRESSION: No CT evidence of interstitial lung disease Kyphosis from T8, T9, and T10 vertebra plana deformities Bibasilar atelectasis Lumbar Spine MRI 02/04/17 00:00 IMPRESSION: No lumbar acute or subacute wedge compression deformity. Thoracic Spine MRI 02/04/17 00:00 IMPRESSION: Greater than 50% compression deformities at T8, T9, and T10 subacute to chronic in appearance. There is minimal marrow edema at the T8 level. Fluoroscopy 02/06/17 00:00 IMPRESSION: Intra procedural imaging and fluoro Thoracic Spine X-Ray 02/06/17 00:00 IMPRESSION: Intra procedural imaging and fluoro Assessment & Plan - Diagnosis (1) Chronic respiratory failure with hypoxia and hypercapnia Is this a current diagnosis for this admission?: Yes Plan: Labs- All tests 24 hr 02/05/17 19:25 ABG pH 7.42 ABG pCO2 60.4 H ABG pO2 71.5 L FiO2 3L hypercapnic/hypoxic resp failure (2) Chronic respiratory failure with hypoxia, on home O2 therapy Is this a current diagnosis for this admission?: Yes (3) COPD exacerbation Is this a current diagnosis for this admission?: Yes Plan: SShe has done well thus far 24h s/p proceedure Generic Name Dose Route Start Last Admin Trade Name Freq PRN Reason Stop Dose Admin Albuterol/Ipratropium 3 ml 02/03/17 20:00 02/06/17 03:47 Duoneb 3 Ml Ampul NEB 03/05/17 19:59 3 ml RTQ4 MARJORIE Budesonide/Formoterol Fumarate 2 puff 02/03/17 22:00 02/05/17 22:37 Symbicort Hfa 160-4.5 Mcg Inhaler 6 Gm IH 03/05/17 21:59 2 puff Q12 MARJORIE Prednisone 20 mg 02/04/17 10:00 02/05/17 17:42 Deltasone 10 Mg Tablet PO 03/06/17 09:59 20 mg BID MARJORIE Tiotropium [place] 1 cap 02/03/17 22:00 02/05/17 22:38 Spiriva Handihaler 5 Cap/Kit (18 Mcg/Cap) IH 03/05/17 21:59 1 cap QHS MARJORIE Roflumilast 500 mcg 02/05/17 22:00 02/05/17 22:38 Daliresp 500 Mcg Tablet PO 03/07/17 21:59 500 mcg QHS MARJORIE Albuterol 2 puff 02/03/17 20:00 02/04/17 18:31 Proair Hfa Inhalation Aerosol 8.5 Gm Mdi IH 03/05/17 19:59 2 puff Q4HP PRN FOR WHEEZING (4) Current chronic use of systemic steroids Is this a current diagnosis for this admission?: Yes Plan: steroid dependent continue current therapy
[2017-02-07 13:41] VITALS: BP 157/62
--- NOTE | 2017-02-07 16:05 | PDOC DISCHARGE SUMMARY ---
General - Admit/Disc Date/PCP Admission Date/Primary Care Provider: 02/06/17 13:01 Discharge Date: 02/07/17 - Discharge Diagnosis (1) COPD exacerbation Is this a current diagnosis for this admission?: Yes (2) Chronic hypoxemic respiratory failure Is this a current diagnosis for this admission?: Yes (3) Chronic pain Is this a current diagnosis for this admission?: Yes (4) Chronic ulcer of lower extremity with fat layer exposed Is this a current diagnosis for this admission?: Yes (5) Current chronic use of systemic steroids Is this a current diagnosis for this admission?: Yes (6) HTN (hypertension) Is this a current diagnosis for this admission?: Yes (7) Thoracic spine fracture Is this a current diagnosis for this admission?: Yes - Additional Information Resuscitation Status: Full Code Discharge Diet: As Tolerated Discharge Activity: Activity As Tolerated Home Medications: Albuterol Sulfate [Proair HFA] 2 puff IH Q4HP PRN 02/03/17 Budesonide/Formoterol Fumarate [Symbicort 160-4.5 Mcg Inhaler] 2 puff IH Q12 09/14 Calcium Carbonate/Vitamin D3 [Calcium 500+D Tablet Chew] 1 tab.chew PO DAILY 09/14 Ergocalciferol (Vitamin D2) [Vitamin D2] 50,000 unit PO .QMONTHLY 02/03/17 Fluticasone Propionate [Flonase Nasal [place] 50 Mcg/[place] 16 gm] 1 spray NAREB Q12 02/03/17 Furosemide [Lasix 40 mg Tablet] 40 mg PO QAM 02/03/17 Ipratropium/Albuterol Sulfate [Duoneb 3 ml Ampul] 3 ml NEB RTQ4 02/03/17 Metoprolol Tartrate [Lopressor 50 mg Tablet] 25 mg PO Q12 02/03/17 Pravastatin Sodium [Pravachol] 20 mg PO QHS 02/03/17 Prednisone [Deltasone 10 mg Tablet] 10 mg PO DAILY 02/03/17 Tiotropium [place] [Spiriva Handihaler 5 Cap/Kit (18 Mcg/Cap)] 1 cap IH DAILY Vit C/Vit E/Lutein/Min/[place]-3 [Ocuvite Softgel] 1 cap PO DAILY 02/03/17 Azithromycin [Zithromax 250 mg Tablet] 500 mg PO DAILY #6 tab 02/07/17 Collagenase Clostridium Hist. [Santyl Ointment 30 gm] 1 applic TP DAILY tube Gabapentin [Neurontin 300 mg Capsule] 300 mg PO QHS #30 capsule 02/07/17 Oxycodone HCl 5 mg PO Q6HP PRN #30 tablet 02/07/17 Roflumilast [Daliresp 500 mcg Tablet] 500 mcg PO DAILY #30 tablet 02/07/17 History of Present Illness History of Present Illness: SHAUN DE LA CRUZ is a 72 year old female was seen by Dr. Mejía on the day of admission and referred to the hospitalist service for admission primarily for pain management since concerned of fractures in the thoracic spine which would benefit from further intervention. Hospital Course Hospital Course: Patient is on chronic steroid use which had been predisposing patient to recurrent fractures in different parts of her body. Patient was evaluated through MRI of the thoracic spine which are confirmed fractures at T8-T9 and T10. Patient underwent vertebroplasty at T8, T9, T10 on February [address] Mejía. Patient was cleared first by Dr. Ross as she does have advanced COPD. She tolerated procedure well however the following day had low-grade temperature. Likely this related to atelectasis and incentive spirometry was recommended. It is noteworthy to mention that on admission she was placed on antibiotic out of concern of an exacerbation of COPD. Patient had been encouraged as to try not to stay sitting for prolonged amount of time since she also has decubiti ulcers in her buttock. Dr. Mejía recommended for patient to be discharged on February 06 but we opted to wait to verify prompt recuperation after surgery. Patient was discharged home with home health. I anticipate recurrent hospitalizations as she does have advanced COPD. We had requested a CT of the chest is concern about pulmonary fibrosis but only showed emphysema. Patient was reminded that medications for pain control can make her breathing worse and may stop her breathing. Since stable, patient can pursue further care by Dr. Mejía and her primary care provider. At the Physical Exam Vital Signs: Temp Pulse Resp BP Pulse Ox 98.1 F 104 H 16 157/62 H 95 02/07/17 12:54 02/07/17 12:54 02/07/17 12:54 02/07/17 12:54 02/07/17 12:54 Intake & Output 02/06/17 02/07/1717 06:59 06:59 06:59 Intake Total 1060 1310 Output Total 420 Balance 1060 890 Weight 69.2 kg General appearance: PRESENT: cooperative, mild distress, obese Head exam: PRESENT: atraumatic, normocephalic Eye exam: PRESENT: EOMI, PERRLA Ear exam: PRESENT: normal external ear exam Mouth exam: PRESENT: moist, neck supple Neck exam: PRESENT: full ROM. ABSENT: carotid bruit, JVD, tenderness, thyromegaly Respiratory exam: PRESENT: crackles - [place] throughout. ABSENT: accessory muscle use, retraction, tachypnea, unlabored Cardiovascular exam: PRESENT: RRR. ABSENT: diastolic murmur, systolic murmur Vascular exam: PRESENT: normal capillary refill GI/Abdominal exam: PRESENT: normal bowel sounds, soft. ABSENT: tenderness Extremities exam: ABSENT: joint swelling, pedal edema Neurological exam: PRESENT: alert, oriented to person, oriented to place, oriented to time Psychiatric exam: PRESENT: appropriate affect, normal mood Skin exam: PRESENT: other - Purplish discolorations on upper and lower extremities Results Laboratory Results: 02/06/17 04:19 02/03/17 19:42 02/04/17 19:00 Sputum Gram Stain - Final 02/04/17 19:00 Sputum Sputum Culture - Final Corynebacterium Striatum Normal Gayatri Absent Impressions: Chest X-Ray 02/03/17 00:00 IMPRESSION: Bibasilar bandlike atelectasis Trace right pleural fluid. Chest CT 02/04/17 00:00 IMPRESSION: No CT evidence of interstitial lung disease Kyphosis from T8, T9, and T10 vertebra plana deformities Bibasilar atelectasis Lumbar Spine MRI 02/04/17 00:00 IMPRESSION: No lumbar acute or subacute wedge compression deformity. Thoracic Spine MRI 02/04/17 00:00 IMPRESSION: Greater than 50% compression deformities at T8, T9, and T10 subacute to chronic in appearance. There is minimal marrow edema at the T8 level. Fluoroscopy 02/06/17 00:00 IMPRESSION: Intra procedural imaging and fluoro Thoracic Spine X-Ray 02/06/17 00:00
== END 2017-02-07 14:20 | disposition home health service (06) | DRG 516 ==
LOC: UNDOADMOB 17:04 → 5 17:04 → INTOOBSV 17:04 → 5 19:57 → OBSVTOIN 02-06 13:01
PROVIDERS: ADMIT Family Medicine; ATTEND Pediatrics
PROC: 0PU43JZ Supplement Thoracic Vertebra with Synthetic Substitute, Percutaneous Approach (ICD-10-PCS; 2017-02-06)
PROC: BR17ZZZ Fluoroscopy of Thoracic Spine (ICD-10-PCS; 2017-02-06)
PROC: 0PS43ZZ Reposition Thoracic Vertebra, Percutaneous Approach (ICD-10-PCS; principal; 2017-02-06 07:30)
DX: M48.54XA Collapsed vertebra, not elsewhere classified, thoracic region, initial encounter for fracture (principal); J44.1 Chronic obstructive pulmonary disease with (acute) exacerbation; L97.912 Non-pressure chronic ulcer of unspecified part of right lower leg with fat layer exposed; J96.11 Chronic respiratory failure with hypoxia; I50.32 Chronic diastolic (congestive) heart failure; I27.29 Other secondary pulmonary hypertension; J84.10 Pulmonary fibrosis, unspecified; I11.0 Hypertensive heart disease with heart failure; I73.9 Peripheral vascular disease, unspecified; G89.29 Other chronic pain; E78.5 Hyperlipidemia, unspecified; Z99.81 Dependence on supplemental oxygen; Z79.52 Long term (current) use of systemic steroids; Z79.899 Other long term (current) drug therapy
CPT/HCPCS: 01936; 36415; 36600; 71020; 71260; 72070; 72146; 72148; 80048; 81001; 82803; 82962; 83735; 85025; 85610; 85730; 86430; 87070; 87077; 87205; 93005; 93010; 93306; 94640; 94667; 94668; 94799; 99283; G0378; G0379; G8978-GP; G8979-GP; J1885; J2060; J2250; J2405; J2704; J3010; J3490; J7512; J7620; Q9966